=== PATIENT | female | born 1960 | race Caucasian/White ===

== ENCOUNTER 2017-01-19 19:50 | Emergency (ER) | payer OTHER ==
[2017-01-19] MEDS ORDERED: ONDANSETRON 4 MG/2 ML VIAL ONE (20:15)
[2017-01-19] MEDS ORDERED: HYDROmorphONE/DILAUDID 1 MG/ML SYR IVP ONE (20:20)
[2017-01-19] MEDS ORDERED: ONDANSETRON 4 MG/2 ML VIAL IVP ONE (20:20)
[2017-01-19] MEDS ORDERED: NS 1,000 ML IV ONE ×2 (20:21→22:02)
--- NOTE | 2017-01-19 20:22 | EDPHY ---
H & P Stated Complaint: abd pain diarrhea Time Seen by Provider: 01/19/17 20:16 HPI/ROS: CHIEF COMPLAINT: Diarrhea and abdominal pain HISTORY OF PRESENT ILLNESS: The patient is a 56-year-old female who comes to the emergency department with her complaining of diarrhea for the last 3 days since she returned home from home [place]. She has not had a fever. She is having abdominal pain that moves around her abdomen. Currently it is in the right lower quadrant. No blood in her stool. No vomiting mild nausea. No chest pain or shortness of breath. History of and no other surgeries. REVIEW OF SYSTEMS: Constitutional: denies: chills, fever, recent illness, recent injury EENTM: denies: blurred vision, double vision, nose congestion Respiratory: denies: cough, shortness of breath Cardiac: denies: chest pain, irregular heart rate, lightheadedness, palpitations Gastrointestinal/Abdominal: See HPI Genitourinary: denies: dysuria, frequency, hematuria, pain Musculoskeletal: denies: joint pain, muscle pain Skin: denies: lesions, rash, jaundice, bruising Neurological: denies: headache, numbness, paresthesia, tingling, dizziness, weakness Hematologic/Lymphatic: denies: blood clots, easy bleeding, easy bruising Immunologic/allergic: denies: HIV/AIDS, transplant EXAM: GENERAL: Well-appearing, well-nourished and in no acute distress. HEAD: Atraumatic, normocephalic. EYES: Pupils equal round and reactive to light, extraocular movements intact, sclera anicteric, conjunctiva are normal. ENT: TMs normal, nares patent, oropharynx clear without exudates. Moist mucous membranes. NECK: Normal range of motion, supple without lymphadenopathy or JVD. LUNGS: Breath sounds clear to auscultation bilaterally and equal. No wheezes rales or rhonchi. HEART: Regular rate and rhythm without murmurs, rubs or gallops. ABDOMEN: Right lower quadrant tenderness, no guarding or rebound BACK: No CVA tenderness, no spinal tenderness, step-offs or deformities EXTREMITIES: Normal range of motion, no pitting or edema. No clubbing or cyanosis. NEUROLOGICAL: Cranial nerves II through XII grossly intact. Normal speech, normal gait. 5/5 strength, normal movement in all extremities, normal sensation PSYCH: Normal mood, normal affect. SKIN: Warm, dry, normal turgor, no visible rashes or lesions. Source: Patient Exam Limitations: No limitations - Personal History Current Tetanus/Diphtheria Vaccine: Yes Current Tetanus Diphtheria and Acellular Pertussis (TDAP): Yes - Medical/Surgical History Hx Asthma: No Hx Chronic Respiratory Disease: No Hx Diabetes: No Hx Cardiac Disease: No Hx Renal Disease: No Hx Cirrhosis: No Hx Alcoholism: No Hx HIV/AIDS: No Hx Splenectomy or Spleen Trauma: No - Family History Significant Family History: No pertinent family hx - Social History Smoking Status: Current some day smoker Alcohol Use: Sober Drug Use: None Constitutional: Initial Vital Signs Temperature (C) 37.1 C 01/19/17 19:54 Heart Rate 78 01/19/17 19:54 Respiratory Rate 18 01/19/17 19:54 Blood Pressure 100/66 01/19/17 19:54 O2 Sat (%) 97 01/19/17 19:54 O2 Delivery Mode Room Air Allergies/Adverse Reactions: oxycodone [Oxycodone] Allergy (Verified 07/22/12 18:39) chloramycetin Allergy (Uncoded 07/22/12 18:39) Home Medications: Medication Instructions Recorded Estrogen/Progestin Unkn Amt 07/22/12 Thyroid Unkn Amt 07/22/12 Dicyclomine [Bentyl 20 MG (*)] 20 mg PO QID PRN #20 tab 01/19/17 Ondansetron Odt [Zofran Odt 4 mg 4 mg PO Q4 PRN #20 tab 01/19/17 (RX)] Prilosec Otc 01/19/17 Medical Decision Making - Diagnostics Imaging: Discussed imaging studies w/ life insurance actuary Radiologist ED Course/Re-evaluation: 10:00 p.m. the patient is feeling much better. She still having cramping. I will treat her with Toradol Ativan more fluids. 10:50 p.m. the patient is feeling much better. She is ready for discharge. Her abdominal exam is benign. We discussed her lab results. I will prescribe herZofran and bentyl. She will take ibuprofen for pain if needed. Differential Diagnosis: Partial list of the Differential diagnosis considered include but were not limited to; gastritis, food poisoning, appendicitis and although unlikely based on the history and physical exam, I also considered ovarian cyst, urinary tract infection, kidney stone, C difficile. I discussed these differential diagnoses and the plan with the patient as well as the usual and expected course. The patient understands that the diagnosis is provisional and that in medicine we are not always correct and that further workup is often warranted. Usual and customary warnings were given. All of the patient's questions were answered. The patient was instructed to return to the emergency department should the symptoms at all worsen or return, otherwise to followup with the physician as we discussed. - Data Points Laboratory Results: Laboratory Results 01/19/17 20:10 01/19/17 20:10 Medications Given: Discontinued Medications Hydromorphone HCl (Dilaudid) 0.5 mg IVP EDNOW ONE Stop: 01/19/17 20:21 Last Admin: 01/19/17 20:30 Dose: 0.5 mg Sodium Chloride (Ns) 1,000 mls @ 0 mls/hr IV ONCE ONE PRN Reason: Wide Open Stop: 01/19/17 20:22 Last Admin: 01/19/17 20:22 Dose: 1,000 mls Sodium Chloride (Ns) 1,000 mls @ 0 mls/hr IV ONCE ONE; Wide Open PRN Reason: Protocol Stop: 01/19/17 22:03 Last Admin: 01/19/17 22:36 Dose: 1,000 mls Ketorolac Tromethamine (Toradol) 30 mg IVP EDNOW ONE Stop: 01/19/17 22:03 Last Admin: 01/19/17 22:35 Dose: 30 mg Lorazepam (Ativan Injection) 0.5 mg IVP EDNOW ONE Stop: 01/19/17 22:03 Last Admin: 01/19/17 22:35 Dose: 0.5 mg Ondansetron HCl (Zofran) 4 mg IVP EDNOW ONE Stop: 01/19/17 20:21 Last Admin: 01/19/17 20:21 Dose: 4 mg Departure - Departure Disposition: Home, Routine, Self-Care Clinical Impression: Diarrhea Qualifiers: Diarrhea type: unspecified type Qualified Code(s): R19.7 - Diarrhea, unspecified Condition: Fair Instructions: Acute Diarrhea (ED) Referrals: NONE *PRIMARY CARE P,. [Primary Care Provider] - As per Instructions Jackie North MD [place] [place] - 2-3 days, if not improved Prescriptions: Dicyclomine [Bentyl 20 MG (*)] 20 mg PO QID PRN #20 tab PRN Reason: Cramping Ondansetron Odt [Zofran Odt 4 mg (RX)] 4 mg PO Q4 PRN #20 tab PRN Reason: Nausea & Vomiting
[2017-01-19 20:26] LABS: % IMMATURE GRANULYOCYTES 0.3 % (0.0-1.1); ABSOLUTE IMMATURE GRANULOCYTES 0.02 10^3/uL (0.00-0.10); ADD DIFF? NO; ADD MORPH? NO; ADD SCAN? NO; ATYPICAL LYMPHOCYTE FLAG 0 (0-99); FRAGMENT RBC FLAG 0 (0-99); HEMATOCRIT 40.1 % (38.0-47.0); LEFT SHIFT FLG 50 (0-99); LIPEMIA HEMOLYSIS FLAG 90 (0-99); MEAN CELL HEMOGLOBIN 32.4 pg (27.9-34.1); MEAN CELL HEMOGLOBIN CONCENTR. 34.9 g/dL (32.4-36.7); MEAN CELL VOLUME 92.8 fL (81.5-99.8); MEAN PLATELET VOLUME 10.4 fL (8.7-11.7); PLATELET CLUMPS FLAG 0 (0-99); PLATELET COUNT 168 10^3/uL (150-400); RED BLOOD CELL COUNT 4.32 10^6/uL (4.18-5.33); RED CELL DISTRIBUTION WIDTH 11.9 % (11.5-15.2)
[2017-01-19 20:28] LABS: COLOR YELLOW; LEUKOCYTE ESTERASE,URINE NEGATIVE (NEGATIVE); NITRITE,URINE NEGATIVE (NEGATIVE)
[2017-01-19 20:38] LABS: BACTERIA 1+ /hpf (NONE SEEN)
[2017-01-19 20:41] LABS: ANION GAP 11 mEq/L (8-16); CALCIUM 9.1 mg/dL (8.5-10.4); CARBON DIOXIDE 25 mEq/l (22-31); CHLORIDE 102 mEq/L (97-110); CREATININE 0.8 mg/dL (0.6-1.0); GLOMERULAR FILTRATION RATE > 60; GLUCOSE 93 mg/dL (70-100); POTASSIUM 3.8 mEq/L (3.5-5.2); SODIUM 138 mEq/L (134-144)
[2017-01-19] MEDS ORDERED: IOPAMIDOL (ISOVUE-300) 100 ML BTL ONE (20:52)
[2017-01-19] MEDS ORDERED: KETOROLAC 30 MG/1 ML SDV IVP ONE (22:02)
[2017-01-19] MEDS ORDERED: LORazepam 2 MG/ML INJ IVP ONE (22:02)
[2017-01-19 22:37] VITALS: BP 109/69; PULSE 65; RESP 16; TEMP 97.3; O2SAT 95
== END 2017-01-19 23:07 | disposition home or self-care (01) ==
DX: R19.7 Diarrhea, unspecified (principal); F17.200 Nicotine dependence, unspecified, uncomplicated; E86.9 Volume depletion, unspecified
CPT/HCPCS: 96374; J1170; J1885; J2060; J2405; Q9967

== ENCOUNTER 2017-09-15 10:06 | Inpatient (IN) | payer OTHER ==
--- NOTE | 2017-09-15 07:04 | PDHPUP ---
History & Physical Update H&P update statement: This history and physical update is based on an assessment of the patient which was completed after admission or registration (within 24 hours), but prior to the surgery/procedure. H&P update: H&P reviewed & patient examined, no change in patient's condition since H&P completed
[~2017-09-15 10:06] MED LIST: ROPIVACAINE 0.2% 80 MG, EPINEPHrine 0.2 MG, KETOROLAC TROMETHAMINE 30 MG in SYRINGE 0 ML IU ONE; TRANEXAMIC ACID 3,000 MG in NS (SYRINGE) 50 ML IRR ONE; TRANEXAMIC ACID 3,000 MG/50 ML BAG IRR ONE; VANCOMYCIN 1 GM VIAL ONE
[2017-09-15] MEDS ORDERED: ceFAZolin 2 GM/SWFI 2 GM/20 ML SYR IVP ONE ×2 (10:26→20:00)
[2017-09-15] MEDS ORDERED: FAMOTIDINE 20 MG TAB PO ONE (10:26)
[2017-09-15] MEDS ORDERED: DEXAMETHASONE 4 MG/ML VIAL IVP ONE (10:26)
[2017-09-15] MEDS ORDERED: ACETAMINOPHEN 325 MG TAB PO ONE (10:26)
[2017-09-15] MEDS ORDERED: LR 1,000 ML IV ONE (10:27)
[2017-09-15] MEDS ORDERED: MIDAZOLAM 2 MG/2 ML VIAL IVP ONE (11:28)
--- NOTE | 2017-09-15 11:28 | PDANEPAE ---
ANE History of Present Illness LTKA revision ANE Past Medical History - Cardiovascular History Hx Hypertension: No Hx Arrhythmias: Yes Hx Chest Pain: No Hx Coronary Artery / Peripheral Vascular Disease: No Hx CHF / Valvular Disease: No Hx Palpitations: No Cardiovascular History Comment: PATs - INFREQUENT & BENIGN - Pulmonary History Hx COPD: No Hx Asthma/Reactive Airway Disease: No Hx Recent Upper Respiratory Infection: No Hx Oxygen in Use at Home: No Hx Sleep Apnea: No Sleep Apnea Screening Result - Last Documented: Negative - Neurologic History Hx Cerebrovascular Accident: No Hx Seizures: No Hx Dementia: No Neurologic History Comment: MIGRAINES INFREQUENTLY - Endocrine History Hx Diabetes: No Endocrine History Comment: HYPOTHYROID - Renal History Hx Renal Disorders: No - Liver History Hx Hepatic Disorders: No - Neurological & Psychiatric Hx Hx Neurological and Psychiatric Disorders: No - Cancer History Hx Cancer: No - Congenital Disorder History Hx Congenital Disorders: No - GI History Hx Gastrointestinal Disorders: No Gastrointestinal History Comment: ACID REFLUX. OCCAS IBS - Other Health History Other Health History: NEG - Chronic Pain History Chronic Pain: Yes (NECK & SHOULDER) - Surgical History Prior Surgeries: L TKA. L KNEE SCOPES AND OPEN ACL. MACULAR HOLE REPAIR. DANNY SHOULDER SCOPES. C SECTION X2. TYMPANOPLASTY. DEVIATED SEPTAL REPAIR. BENIGN LUMPECTOMY R BREAST. BENIGN TUMOR THROAT. TONSILLECTOMY ANE Review of Systems Review of Systems: - Exercise capacity METS (RN): 6 METS ANE Patient History - Allergies Allergies/Adverse Reactions: aspirin [From Percodan] Allergy (Verified 09/13/17 10:36) NAUSEA/VOMITING codeine Allergy (Verified 09/13/17 10:36) NAUSEA/VOMITING oxycodone Allergy (Verified 09/13/17 10:36) NAUSEA/VOMITING tramadol Allergy (Verified 09/13/17 10:36) NAUSEA/VOMITING ANALGESICS & ANTIPYRETICS Allergy (Uncoded 09/13/17 10:36) NAUSEA/VOMITING CENTRAL NERVOUS SYSTEM AGENTS Allergy (Uncoded 09/13/17 10:36) NAUSEA/VOMITING chloramycetin Allergy (Uncoded 09/13/17 10:36) NAUSEA/VOMITING OPIATE ANTAGONISTS Allergy (Uncoded 09/13/17 10:36) NAUSEA/VOMITING - Home Medications Home medications: home medication list seen and reviewed Home Medications: Thyroid [Erie Thyroid 60 MG (*)] 60 mg PO DAILY10 07/22/12 [Last Taken ] Omeprazole 20 mg PO DAILY 01/19/17 [Last Taken 09/15/17] Carboxymethylcellulose 1% [Refresh Celluvisc (*)] 1 drop EACHEYE DAILY PRN 09/12 [Last Taken 09/12/17] - NPO status NPO Since - Liquids (Date): 09/15/17 NPO Since - Liquids (Time): 08:59 NPO Since - Solids (Date): 09/14/17 NPO Since - Solids (Time): 21:30 - Anes Hx Anes Hx: post operative nausea - Smoking Hx Smoking Status: Former smoker - Alcohol Use Alcohol Use: Occasionally - Family Anes Hx Family Anes Hx: none Family Hx Anesthesia Complications: NEG ANE Labs/Vital Signs - Vital Signs Blood Pressure: 139/75 Heart Rate: 63 Respiratory Rate: 16 O2 Sat (%): 95 Height: 165.1 cm Weight: 63.503 kg ANE Physical Exam - Airway Neck exam: FROM Mallampati Score: Class 2 Mouth exam: normal dental/mouth exam - Pulmonary Pulmonary: no respiratory distress, clear to auscultation - Cardiovascular Cardiovascular: regular rate and rhythym, no murmur, rub, or gallop - ASA Status ASA Status: II ANE Anesthesia Plan Anesthesia Plan: GA with mask, spinal Total IV Anesthesia: Yes
[2017-09-15] MEDS ORDERED: MIDAZOLAM 2 MG/2 ML VIAL ONE (11:39)
[2017-09-15] MEDS ORDERED: PROPOFOL/EMULSION 500 MG/50 ML BOTTLE IV ONE (11:59)
[2017-09-15] MEDS ORDERED: clonIDINE 1 MG/10 ML VIAL EP ONE (12:36)
[2017-09-15] MEDS ORDERED: ROPIVACAINE HCL 150 MG/30 ML INJ ONE (12:36)
[2017-09-15] MEDS ORDERED: DEXAMETHASONE 4 MG/ML VIAL ONE (12:37)
[2017-09-15] MEDS ORDERED: ONDANSETRON 4 MG/2 ML VIAL ONE (12:37)
[2017-09-15] MEDS ORDERED: ACETAMINOPHEN 500 MG TAB PO PRN (12:42)
[2017-09-15] MEDS ORDERED: HYDROCODONE/APAP 5/325 TAB PO PRN (12:42)
[2017-09-15] MEDS ORDERED: OXYCODONE/APAP 5/325 TAB PO PRN (12:42)
[2017-09-15] MEDS ORDERED: HYDROmorphONE/DILAUDID 1 MG/ML INJ IVP PRN (12:42)
[2017-09-15] MEDS ORDERED: PROMETHAZINE HCL 25 MG/ML INJ IVP PRN ×2 (12:42→13:22)
[2017-09-15] MEDS ORDERED: NALOXONE HCL 0.4 MG/ML INJ IVP PRN (12:42)
[2017-09-15] MEDS ORDERED: HYDROmorphONE/DILAUDID 2 MG/ML INJ IVP PRN (12:54)
--- NOTE | 2017-09-15 13:17 | POSTANESTH ---
Post Anesthetic Evaluation Cardiovascular Status: Normal, Stable, Similar to Pre-Op Cond Respiratory Status: Normal, Stable, Similar to Pre-op Cond. Level of Consciousness/Mental Status: Can Participate in Eval, Alert and Oriented Pain Control: Adequate, Prn Tx Ordered Nausea/Vomiting Control: Adequate, Prn Tx Ordered Complications Possibly Related to Anesthesia: None Noted
[2017-09-15] MEDS ORDERED: LACTULOSE 20 GM/30 ML UDCUP PO PRN (13:22)
[2017-09-15] MEDS ORDERED: TEMAZEPAM 15 MG CAP PO PRN (13:22)
[2017-09-15] MEDS ORDERED: PROMETHAZINE HCL 25 MG SUPPR PR PRN (13:22)
[2017-09-15] MEDS ORDERED: BISACODYL 10 MG SUPP PR PRN (13:22)
[2017-09-15] MEDS ORDERED: ONDANSETRON 4 MG/2 ML VIAL IVP PRN (13:22)
[2017-09-15] MEDS ORDERED: diphenhydrAMINE 25 MG CAP PO PRN (13:22)
[2017-09-15] MEDS ORDERED: ONDANSETRON DISINTEGRATING 4 MG TAB PO PRN (13:22)
[2017-09-15] MEDS ORDERED: CYCLOBENZAPRINE 10 MG TAB PO PRN (13:22)
[2017-09-15] MEDS ORDERED: POLYETHYLENE GLYCOL 3350 17 GM PKT PO PRN (13:22)
[2017-09-15] MEDS ORDERED: MAGNESIUM HYDROXIDE 30 ML UDCUP PO PRN (13:22)
[2017-09-15] MEDS ORDERED: DIPHENOXYLATE/ATROPINE LOMOTIL 1 TAB PO PRN (13:22)
--- NOTE | 2017-09-15 13:27 | POSTOPPROG ---
Post Op Note Date of Operation: 09/15/17 Surgeon: Parris Alfred Hand Tile Maker: Jessica Alfred PAc Anesthesiologist: Coral Anesthesia: Spinal Pre-op Diagnosis: LTKA with global instability Post-op Diagnosis: same Indication: unstable TKA Procedure: Rev TKA, poly exchange Findings: loose knee with near post dislocation Inf/Abcess present in the surg proc area at time of surgery?: No EBL: 50-100
[2017-09-15] MEDS ORDERED: LR 1,000 ML IV SCH (13:30)
[2017-09-15] MEDS ORDERED: fentaNYL 100 MCG/2 ML INJ ONE (13:59)
[2017-09-15] MEDS: fentaNYL 100 MCG/2 ML INJ IVP PRN ×3 (14:00→14:34)
--- NOTE | 2017-09-15 15:10 | PDMN ---
Medical Necessity Medical necessity: Patient meets inpatient criteria per physician/PA notes and [facility] [place], [place] (CPT 04583 /revision of total knee arthroplasty is Medicare inpatient-only surgery.)
[2017-09-15] MEDS: HYDROmorphONE/DILAUDID 2 MG TAB PO PRN ×3 (15:29→23:59)
[2017-09-15] MEDS: ACETAMINOPHEN 325 MG TAB PO SCH ×2 (18:34→23:58)
[2017-09-15] MEDS ORDERED: ceFAZolin 2 GM/DEXTROSE 100 ML IV SCH (20:00)
[2017-09-15] MEDS: FAMOTIDINE 20 MG TAB PO SCH (20:05)
[2017-09-15] MEDS: SENNOSIDES/DOCUSATE SODIUM TAB PO SCH (20:05)
[2017-09-15] MEDS: ASPIRIN 81 MG CHEWABLE TAB PO SCH (20:05)
[2017-09-16 00:01] VITALS: RESP 16
--- NOTE | 2017-09-16 00:50 | GOP ---
[f rep st] OPERATIVE REPORT DATE OF OPERATION: 09/15/2017 SURGEON: Keanu Alfred MD COUNTY MANAGER: Jessica Alfred, BILL ANESTHESIA: Spinal. 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 PROCEDURE PERFORMED: Left knee revision of 1 component total knee replacement. FINDINGS: INDICATIONS: Patient is a 57-year-old female who underwent a left total knee replacement done in [facility]. She started having symptoms of catching and pain and discomfort with the knee. Had risks, bene fits discussed with patient regarding revision procedure. Patient expressed understanding, informed consent was obtained. DESCRIPTION OF PROCEDURE: Patient was identified in the preoperative holding area. Her left lower e xtremity was marked. She was brought back to the operating room. After induction of anesthesia, she was placed supine on the operating table. A nonsterile tourniquet was placed on left upper thigh. She was then prepped and draped in the usual sterile fashion. A time-out was taken confirming patien t, laterality and procedure, and antibiotic status. We then proceeded to elevate the leg and tourniq uet was inflated to 250 mmHg. Incision was made through prior incision. Arthrotomy was made. Ident ified the components. The metal components were well fixed to the bone. When taking knee through ra nge of motion and extension, there was no issue, but with the hip flexed on bringing the knee up from flexion to extension, there was perching of the post in the box sort of a pseudosubluxation, would o ccur in the last 20 degrees of extension. This correlated with the patient's symptoms and clinical e xam. The patient was loose in flexion, extension. The bearing was removed and found to be an 8 mm b earing. We then trialed a 10 mm and a 12 mm bearing. Found that the 12 mm fixed bearing posterior s tabilized size 6 component was the correct size and stability for the patient and no longer did it beaulieu ve this continued issue with the post. Patient's incision was copiously irrigated. She was then mireille sed in layers. Placed in a sterile dressing and awoken and brought to PACU in good condition with a well-perfused limb. The plan is that we will admit the patient to the orthopedic service. /[id number]/MODL
[2017-09-16] MEDS: HYDROmorphONE/DILAUDID 2 MG TAB PO PRN ×2 (04:51→08:19)
[2017-09-16 04:54] VITALS: PULSE 64; O2SAT 96
[2017-09-16] MEDS: ACETAMINOPHEN 325 MG TAB PO SCH (05:10)
[2017-09-16 07:42] VITALS: BP 104/68; TEMP 97.7
[2017-09-16] MEDS: ASPIRIN 81 MG CHEWABLE TAB PO SCH (08:20)
[2017-09-16] MEDS: SENNOSIDES/DOCUSATE SODIUM TAB PO SCH (08:20)
[2017-09-16] MEDS: FAMOTIDINE 20 MG TAB PO SCH (08:20)
[2017-09-16] MEDS ORDERED: THYROID 60 MG TAB PO SCH (10:00)
--- NOTE | 2017-09-16 10:00 | SOAPPROG ---
SOAP Progress Note Assessment/Plan: Assessment: Patient is doing well POD 1 s/p L TKA revision, one component pain is well controlled on oral pain meds anemia: level is expected initially postop. asymptomatic VTE ppx: recommend ASA 81 mg BID for 4 weeks. cont SETH richard and SCDs D/c planning: d/c to home today, pending release from PT postop urinary retention: straight cath'd today, resolved today Plan: 09/16/17 09:58 09/16/17 09:59 Subjective: Daily is doing well today, denies SOB, chest pain and n/V Objective: Vital Signs Temp Pulse Resp BP Pulse Ox 36.5 C 64 16 104/68 96 09/16/17 07:41 09/16/17 07:41 09/16/17 07:41 09/16/17 07:41 09/16/17 07:41 Laboratory Results 09/16/17 04:57 09/15/17 09/16/17 09/17/17 05:59 05:59 05:59 Intake Total 2950 600 Output Total 2220 Balance 730 600 LLE; incision dressing is clean and dry, NVI, +pf/df ICD10 Worksheet Patient Problems: Problems Problem Status Onset History of total knee arthroplasty Acute Instability of internal left knee prosthesis Acute Painful total knee replacement, left Acute Diarrhea Acute
--- NOTE | 2017-09-20 21:05 | GDS ---
[f rep st] DISCHARGE SUMMARY ADMISSION DIAGNOSIS: Painful and instable left total knee arthroplasty. 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 PROCEDURE: One compartment revision of left total arthroplasty. DVT PROPHYLAXIS: Recommend aspirin 81 mg twice daily for a month. BRIEF DESCRIPTION OF HOSPITAL STAY: Patient was admitted for an elective joint arthroplasty. The pa tient tolerated the procedure well and has passed physical therapy. The patient was given appropriat e antibiotic prophylaxis and venous thromboembolism prophylaxis. The patient's pain was well control led on oral pain medication, patient was holding down food, and had urinated. Decision was made to d ischarge the patient. The patient was given post-operative prescriptions pre-operatively. PLAN: Follow up as scheduled with Dr. Alfred's office. /[id number]/MODL
== END 2017-09-16 11:27 | disposition home or self-care (01) | DRG 488 ==
LOC: F3N 10:06 → OBSVTOIN 13:40 → F3N 15:08
PROVIDERS: ADMIT Orthopaedic Surgery; ATTEND Orthopaedic Surgery
PROC: 0SPD09Z Removal of Liner from Left Knee Joint, Open Approach (ICD-10-PCS; principal; 2017-09-15 12:15)
PROC: 0SUW09Z Supplement Left Knee Joint, Tibial Surface with Liner, Open Approach (ICD-10-PCS; principal; 2017-09-15 12:15)
DX: T84.023A Instability of internal left knee prosthesis, initial encounter (principal); I47.1 Supraventricular tachycardia; E03.9 Hypothyroidism, unspecified; G43.909 Migraine, unspecified, not intractable, without status migrainosus; K21.9 Gastro-esophageal reflux disease without esophagitis
CPT/HCPCS: 97116-GP; 97161-GP; 97165-GO; J0171; J0690; J0735; J1100; J1885; J2250; J2405; J2704; J2795; J3010; J3370